=== PATIENT | male | born 1970 | race African-American/Black ===

== ENCOUNTER 2019-11-11 19:21 | Emergency (ER) | payer OTHER ==
[~2019-11-11] VITALS: Ht 167.6 cm; Wt 77.1 kg
[2019-11-11] MEDS ORDERED: METHOCARBAMOL500 M1 PO (20:56)
== END 2019-11-11 20:59 | disposition home or self-care (01) ==
LOC: ED 19:21
DX: S16.1XXA Strain of muscle, fascia and tendon at neck level, initial encounter (principal); V89.2XXA Person injured in unspecified motor-vehicle accident, traffic, initial encounter; Y93.I9 Activity, other involving external motion; Y92.488 Other paved roadways as the place of occurrence of the external cause; Y99.8 Other external cause status